=== PATIENT | female | born 1980 ===

== ENCOUNTER 2016-10-09 18:07 | Emergency (ER) | payer MEDICAID ==
[2016-10-09 18:11] VITALS: BMI 31.1
[2016-10-09 18:16] VITALS: TEMP 97.9
[2016-10-09] MEDS ORDERED: Sodium Chloride 0.9% 1,000 ML IV STA (18:25)
--- NOTE | 2016-10-09 18:29 | ED PDOC ---
Arrival/HPI - General Chief Complaint: Abdominal Pain Time Seen by Provider: 10/09/16 18:08 Historian: Patient - History of Present Illness Narrative History of Present Illness (Text): 10/09/16 18:27 36 y/o female, pmh including asthma and htn, nkda, woke up this morning with burning epigastric pain with nausea and vomiting. Pt. stated that she has gnawing, burning, non-radiating pain, more painful after eating pizza which she vomitted twice, no chest pain or shortness of breath, no palpitation, no night sweat, no dizziness, no numbness or tingling, no other medical or psychological complaints. Past Medical History - Provider Review Nursing Documentation Reviewed: Yes - Infectious Disease Hx of Infectious Diseases: None - Cardiac Hx Cardiac Disorders: Yes Hx Hypertension: Yes - Pulmonary Hx Respiratory Disorders: Yes Hx Asthma: Yes - Neurological Hx Neurological Disorder: No - HEENT Hx HEENT Disorder: No - Renal Hx Renal Disorder: No - Endocrine/Metabolic Hx Endocrine Disorders: No - Hematological/Oncological Hx Blood Disorders: No - Integumentary Hx Dermatological Disorder: No - Musculoskeletal/Rheumatological Hx Musculoskeletal Disorders: No - Gastrointestinal Hx Gastrointestinal Disorders: No - Genitourinary/Gynecological Hx Genitourinary Disorders: No - Psychiatric Hx Psychophysiologic Disorder: No Hx Substance Use: No - Surgical History Hx Section: Yes (X2) Other/Comment: BREAST REDUCTION - Anesthesia Hx Anesthesia: Yes Hx Anesthesia Reactions: Yes (vomiting) Family/Social History - Physician Review Nursing Documentation Reviewed: Yes Family/Social History: Unknown Family HX Smoking Status: Never Smoked Hx Alcohol Use: Yes Hx Substance Use: No Allergies/Home Meds Allergies/Adverse Reactions: Allergies No Known Allergies Allergy (Verified 10/09/16 18:11) Home Medications: Home Meds Medication Instructions Recorded Confirmed Albuterol HFA [Ventolin HFA 90 1 puff IH PRN PRN 10/09/16 10/09/16 mcg/actuation (8 g)] Valsartan [Diovan] 40 mg PO DAILY 10/09/16 10/09/16 Review of Systems - Review of Systems Constitutional: absent: Fatigue, Fevers Eyes: absent: Vision Changes ENT: absent: Hearing Changes Respiratory: absent: SOB, Cough, Sputum Cardiovascular: absent: Chest Pain, Calf Pain Gastrointestinal: Abdominal Pain, Nausea, Vomiting. absent: Diarrhea Neurological: absent: Headache, Dizziness Physical Exam Vital Signs Reviewed: Yes Vital Signs Temp Pulse Resp BP Pulse Ox 10/09/16 20:08 51 L 18 119/69 100 10/09/16 18:14 97.9 F 58 L 17 118/82 96 Temperature: Afebrile Blood Pressure: Normal Pulse: Bradycardic Respiratory Rate: Normal Appearance: Positive for: Well-Appearing, Non-Toxic, Comfortable Pain Distress: Moderate Mental Status: Positive for: Alert and Oriented X 3 - Systems Exam Head: Present: Atraumatic, Normocephalic Pupils: Present: PERRL Extroacular Muscles: Present: EOMI Conjunctiva: Present: Normal Mouth: Present: Moist Mucous Membranes Pharnyx: No: ERYTHEMA, EXUDATE, TONSILS ENLARGED, Uvular Deviation, Soft Palate/ Uvular Edema Nose (External): No: Abrasion, Contusion, Laceration Nose (Internal): Present: Normal Inspection, No Active Bleeding. No: Rhinorrhea , Epistaxis Neck: Present: Normal Range of Motion Respiratory/Chest: Present: Clear to Auscultation, Good Air Exchange, Wheezes ( scattered wheezing on the rt. lower lobe). No: Respiratory Distress, Accessory Muscle Use Cardiovascular: Present: Regular Rate and Rhythm, Normal S1, S2. No: Murmurs Abdomen: Present: Tenderness (epigastric), Normal Bowel Sounds, Other (negative novak sign). No: Distention, Peritoneal Signs, Rebound, Guarding Back: Present: Normal Inspection. No: CVA Tenderness, Midline Tenderness, Paraspinal Tenderness Upper Extremity: Present: Normal Inspection. No: Cyanosis, Edema Lower Extremity: Present: Normal Inspection. No: Edema Neurological: Present: GCS=15, CN II-XII Intact, Speech Normal Skin: Present: Warm, Dry, Normal Color. No: Rashes Psychiatric: Present: Alert, Oriented x 3, Normal Insight, Normal Concentration Medical Decision Making ED Course and Treatment: 10/09/16 18:25 -labs/lipase -IVF/pepcid/zofran/duoneb -observe and reassess 10/09/16 19:54 -Pt. still has pain despite GI cocktail. -EKG and gallbladder sonogram 10/09/16 22:05 -EKG: Sinus Bradycardia @ 50 BPM, no ST elevation or depression, no t wave inversion. -Labs are non-significant -Lipase within normal limit -Sonogram show no acute cholecystitis, pain relief with morphine 4mg IV. -Case discussed with Dr. Aguirre and he agreed on the dispo and treatment plan. - Lab Interpretations Lab Results: 10/09/16 01:52 10/09/16 01:52 Lab Results 10/09/16 01:52: Sodium 138, Potassium 3.8, Chloride 105, Carbon Dioxide 23, Anion Gap 14, BUN 15, Creatinine 0.8, Est GFR ( Amer) > 60, Est GFR (Non- Af Amer) > 60, Random Glucose 113 H, Calcium 8.9, Total Bilirubin 0.3, AST 30, ALT 28, Alkaline Phosphatase 49, Total Protein 7.4, Albumin 4.0, Globulin 3.4, Albumin/Globulin Ratio 1.2, Lipase 146 10/09/16 01:52: WBC 6.9, RBC 3.94, Hgb 11.1 L, Hct 33.3 L, MCV 84.5, MCH 28.2, MCHC 33.3, RDW 13.5, Plt Count 301, MPV 8.4, Gran % 77.5 H, Lymph % (Auto) 17.0 L, [place] % (Auto) 3.5, Eos % (Auto) 1.7, Baso % (Auto) 0.3, Gran # 5.35, Lymph # 1.2, [place] # 0.2, Eos # 0.1, Baso # 0.02 I have reviewed the lab results: Yes Interpretation: No clinic. lab abnormalty - RAD Interpretation Radiology Orders: 10/09/16 20:00 GALL BLADDER [US] Stat FINDINGS: Liver: Liver is unremarkable.There is hepatopedal flow in the main portal vein. Gallbladder: Gallbladder is only partially distended with no stones, sludge or wall thickening. Common bile duct: Common bile duct measures 2.8 mm in diameter. Pancreas: Pancreas is partially obscured by bowel gas. Visualized portion is unremarkable. Right kidney: Right kidney is unremarkable. Aorta: Visualized portions of the aorta and inferior vena cava are unremarkable. IMPRESSION: No gallstones or ductal dilatation Thank you for allowing us to participate in the care of your patient. Dictated and Authenticated by: Diane Woo MD 10/09/2016 9:51 PM Eastern Time ([place] & [place]) Cement Finisher Apprentice: Radiologist - EKG Interpretation EKG Interpretation (Text): 10/09/16 20:02 EKG: Sinus Bradycardia @ 50 BPM, no ST elevation or depression, no t wave inversion. Interpreted by ED Physician: Yes Type: 12 lead EKG Comparison: No previous EKG avail. - Medication Orders Current Medication Orders: Discontinued Medications Al Hydrox/Mg Hydrox/Simethicone (Maalox Plus 30 Ml) 30 ml PO STAT STA Stop: 10/09/16 19:11 Last Admin: 10/09/16 19:35 Dose: 30 ml Albuterol/Ipratropium (Duoneb 3 Mg/0.5 Mg (3 Ml) Ud) 3 ml IH STAT STA Stop: 10/09/16 19:18 Last Admin: 10/09/16 19:30 Dose: 3 ml Dicyclomine HCl (Bentyl) 20 mg PO STAT STA Stop: 10/09/16 19:11 Last Admin: 10/09/16 19:35 Dose: 20 mg Famotidine (Pepcid) 20 mg IVP STAT STA Stop: 10/09/16 18:26 Last Admin: 10/09/16 18:43 Dose: 20 mg Sodium Chloride (Sodium Chloride 0.9%) 1,000 mls @ 999 mls/hr IV .Q1H1M STA Stop: 10/09/16 19:25 Last Admin: 10/09/16 18:43 Dose: 999 mls/hr Lidocaine HCl (Lidocaine 2% Viscous) 15 ml PO STAT STA Stop: 10/09/16 19:11 Last Admin: 10/09/16 19:35 Dose: 15 ml Morphine Sulfate (Morphine) Confirm Administered Dose 4 mg .ROUTE .STK-MED ONE Stop: 10/09/16 21:51 Last Admin: 10/09/16 21:52 Dose: 4 mg Morphine Sulfate (Morphine) 4 mg IVP STAT STA Stop: 10/09/16 21:58 Ondansetron HCl (Zofran Inj) 4 mg IVP STAT STA Stop: 10/09/16 18:26 Last Admin: 10/09/16 18:44 Dose: 4 mg - PA / CABLE TELEVISION LINE TECHNICIAN / Resident Statement /DO has reviewed & agrees with the documentation as recorded. Disposition/Present on Arrival - Present on Arrival Any Indicators Present on Arrival: No History of DVT/PE: No History of Uncontrolled Diabetes: No Urinary Catheter: No History of Decub. Ulcer: No History Surgical Site Infection Following: None - Disposition Have Diagnosis and Disposition been Completed?: Yes Diagnosis: Gastritis Disposition: HOME/ ROUTINE Disposition Time: 19:03 Patient Plan: Discharge Patient Problems: Current Active Problems Problem Status Onset Gastritis Acute Condition: IMPROVED Additional Instructions: Discharge home with pepcid, zofran, avoid acidic/sour/spicy/fried/grilled/coffee /tea for the next 3-4 days, avoid eating 2 hours before sleeping, follow up with your own pmd and GI for outpatient endoscopy if indicated, return to the ER for any new or worsening signs or symptoms. Prescriptions: Famotidine [Pepcid] 20 mg PO BID #20 tab Ondansetron [Zofran] 4 mg PO Q8H PRN #8 tab PRN Reason: Nausea/Vomiting Referrals: Salina Pappas MD [Primary Care Provider] - Follow up with primary Michael Mcbride MD [Staff Provider] - Follow up with primary Forms: [employer] Connect (Portuguese), WORK NOTE
[2016-10-09 18:39] LABS: ADD MANUAL DIFF? NO
[2016-10-09 18:50] LABS: BASO # 0.02 K/mm3 (0.0-2.0); BASO % 0.3 % (0.0-3.0); EOS # 0.1 (0.0-0.7); EOS % 1.7 % (1.5-5.0); GRAN # 5.35 (1.4-6.5); GRAN % 77.5 % (50.0-68.0); HEMATOCRIT 33.3 % (36.0-48.0); LYMPH # 1.2 (1.2-3.4); MEAN CELL VOLUME 84.5 fL (80.0-105.0); MEAN CORPUSCULAR HEMOGLOBIN 28.2 pg (25.0-35.0); MEAN CORPUSCULAR HGB CONC 33.3 g/dl (31.0-37.0); MEAN PLATELET VOLUME 8.4 fl (7.0-11.0); MONO # 0.2 (0.1-0.6); MONO % 3.5 % (1.0-6.0); PLATELET COUNT 301 10^3/uL (120.0-450.0); RED CELL DISTRIBUTION WIDTH 13.5 % (11.5-14.5); WHITE BLOOD COUNT 6.9 10^3/ul (4.5-11.0)
[2016-10-09] MEDS ORDERED: Alum-Mag Hydrox-Simethicone Susp (30 mL) PO STA (19:10)
[2016-10-09] MEDS ORDERED: Albuterol-Ipratrop 3 mg / 0.5 (3 ml) UD IH STA (19:17)
[2016-10-09 19:32] LABS: ALB/GLOB RATIO 1.2 (1.1-1.8); ALKALINE PHOSPHATASE 49 U/L (38-133); ALT/SGPT 28 U/L (7-56); AST/SGOT 30 U/L (15-39); BILIRUBIN,TOTAL 0.3 mg/dL (0.2-1.3); BLOOD UREA NITROGEN 15 mg/dL (7-21); CALCIUM 8.9 mg/dL (8.4-10.5); CARBON DIOXIDE 23 mmol/L (21-33); CHLORIDE 105 mmol/L (95-110); GFR AFRICAN-AMERICAN > 60; GLUCOSE,RANDOM 113 mg/dL (70-110); LIPASE 146 U/L (23-300); POTASSIUM 3.8 mmol/L (3.6-5.0); SODIUM 138 mmol/L (132-148); TOTAL PROTEIN 7.4 g/dL (5.8-8.3)
[2016-10-09 20:10] VITALS: O2SAT 100
[2016-10-09] MEDS ORDERED: Morphine 4 mg/ml ISec ONE (21:50)
--- NOTE | 2016-10-09 21:51 | US ---
EXAM: US Abdomen Limited, Right Upper Quadrant CLINICAL HISTORY: 36 years old, female; Pain; Abdominal pain; Additional info: Epigastric pain TECHNIQUE: Real-time ultrasound of the right upper quadrant with image documentation. EXAM DATE/TIME: 10/09/2016 8:00 PM COMPARISON: There are no prior studies for comparison. FINDINGS: Liver: Liver is unremarkable.There is hepatopedal flow in the main portal vein. Gallbladder: Gallbladder is only partially distended with no stones, sludge or wall thickening. Common bile duct: Common bile duct measures 2.8 mm in diameter. Pancreas: Pancreas is partially obscured by bowel gas. Visualized portion is unremarkable. Right kidney: Right kidney is unremarkable. Aorta: Visualized portions of the aorta and inferior vena cava are unremarkable. IMPRESSION: No gallstones or ductal dilatation
[2016-10-09] MEDS ORDERED: Morphine 4 mg/ml ISec IVP STA (21:57)
[2016-10-09 22:18] VITALS: BP 102/66; PULSE 50; RESP 16
--- NOTE | 2016-10-11 01:39 | CARD ---
APPROVED REPORT EKG Measurement Heart [id number] <Conclusion> Sinus bradycardia Left axis deviation Nonspecific T wave abnormality Abnormal ECG
== END 2016-10-09 22:18 | disposition home or self-care (01) ==
LOC: ED 18:07
DX: K29.70 Gastritis, unspecified, without bleeding (principal)
CPT/HCPCS: 76705; 80053; 83690; 85025; 93005; 96361; 96374; 96375; 99284; J2270; J2405; J7040

== ENCOUNTER 2016-11-25 11:15 | Day surgery (SDC) | payer MEDICAID ==
[2016-11-25] MEDS ORDERED: Propofol 10 mg/ml Inj (20 ML) ONE (14:05)
[2016-11-25] MEDS ORDERED: Sodium Chloride 0.9% 1,000 ML IV SCH (15:00)
[2016-11-25 15:03] VITALS: TEMP 97.8
[2016-11-25 15:30] VITALS: RESP 16
[2016-11-25 15:55] VITALS: BP 116/58; PULSE 61; O2SAT 100
== END 2016-11-25 16:33 | disposition home or self-care (01) ==
LOC: ENDO 11:15
PROVIDERS: ATTEND Internal Medicine
DX: K29.50 Unspecified chronic gastritis without bleeding (principal); K64.8 Other hemorrhoids; K57.30 Diverticulosis of large intestine without perforation or abscess without bleeding; K59.00 Constipation, unspecified
CPT/HCPCS: 43239; 45380; 84703; 88305; 88342; J2704; J7040

== ENCOUNTER 2018-06-10 08:40 | Outpatient (CLI) | payer BC, MEDICAID | END 2018-06-10 08:41 | disposition home or self-care (01) | LOC: RAD 08:40 | DX: Z12.31 Encounter for screening mammogram for malignant neoplasm of breast (principal) ==

== ENCOUNTER 2018-07-16 08:47 | Outpatient (CLI) | payer MEDICAID | END 2018-07-16 08:48 | disposition home or self-care (01) | LOC: RAD 08:47 | DX: G43.909 Migraine, unspecified, not intractable, without status migrainosus (principal) ==